=== PATIENT | male | born 1985 | race Caucasian/White ===

== ENCOUNTER 2020-09-07 10:37 | Emergency (ER) | payer SELFPAY ==
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
[2020-09-07 10:47] VITALS: BP 146/97; PULSE 99; RESP 22; TEMP 36.9; O2SAT 99; BMI 22.4
[2020-09-07] MEDS: TET,DIPH,PERTUSS(ACELL),VAC/PF 0.5 ML SYRINGE IM (10:51)
[2020-09-07] MEDS: LIDOCAINE 1% W/EPI 30 ML (10:53)
--- NOTE | 2020-09-07 11:00 | PC.NURSE ---
pt did take the tdap form.
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
[2020-09-07] MEDS: LIDOCAINE 1% (PF) 2 ML (12:02)
[2020-09-07 12:35] VITALS: BP 142/76; PULSE 92; RESP 16; O2SAT 98
== END 2020-09-07 12:35 | disposition home or self-care (01) ==
PROVIDERS: Emergency Provider Emergency Medicine; Family Provider Family Medicine; PCP Family Medicine
DX: S61.011A Laceration without foreign body of right thumb without damage to nail, initial encounter (principal); S01.81XA Laceration without foreign body of other part of head, initial encounter; W26.0XXA Contact with knife, initial encounter; Z23 Encounter for immunization; F11.10 Opioid abuse, uncomplicated
CPT/HCPCS: 12002; 12015; 90471; 99281; 99283; 90715

== ENCOUNTER 2020-09-25 19:24 | Emergency (ER) | payer SELFPAY ==
[2020-09-25 19:27] VITALS: BP 128/79; PULSE 99; RESP 20; TEMP 37; O2SAT 99
--- NOTE | 2020-09-25 19:59 | PC.NURSE ---
Swelling to face noted, patient reports poor dental health and missing teeth with frequent oral infections. Pt also has 7 sutures to right side of face that need removed from prior visit, other sutures from that visit he removed himself.
--- NOTE | 2020-09-25 20:09 | PC.NURSE ---
7 sutures removed from right side of face, wound edges are well approximated and healed, no signs of infection, pt tolerated well.
--- NOTE | 2020-09-25 20:40 | ED.GENADULT ---
HPI - General Adult General Chief complaint: Dental/Oral Stated complaint: Needs Stitches Removed, Tooth Pain and Swelling Time Seen by Provider: 09/25/20 20:31 Source: patient Mode of arrival: Ambulatory Limitations: no limitations History of Present Illness HPI narrative: Patient is a 35-year-old male here for evaluation to have stitches removed from a cut to the right side of his face and also for evaluation of swelling to the left side of his face and concern for dental abscess. He has had dental abscess in the past. He has very poor dentition which he knows about and states that he thought that potentially he injured 1 of the few teeth that he has left while eating a hamburger a couple days ago. He did sustain a cut to the right side of his face several days ago. He removed most of the stitches on his own however there were couple that he was unable to remove. Related Data Previous Rx's Medication Instructions Recorded clindamycin HCl 300 mg PO QID 10 Days #40 cap 09/25/20 Allergies Allergy/AdvReac Type Severity Reaction Status Date / Time No Known Drug Allergies Allergy Verified 09/07/20 10:47 Review of Systems Constitutional Constitutional: Denies fever(s) ENT Ears, Nose, Mouth, and Throat: Denies lip swelling and Denies sore throat Comments: Swelling left side of face Cardiovascular Cardiovascular: Denies dyspnea Respiratory Respiratory: Denies cough and Denies dyspnea Integumentary/Breasts Comments: Stitches in right-sided face Neurologic Neurologic: Denies behavioral changes Psychiatric Psychiatric: Denies behavioral changes Hematologic/Lymphatic On Anticoagulants: No Allergic/Immunologic Allergic/Immunologic: Denies urticaria and Denies lip swelling Patient History Medical History Heroin abuse Methamphetamine abuse Social History Smoking Status: Current every day smoker Smoking Status: Current every day smoker Substance Use Type: heroin and methamphetamine Exam Initial Vital Signs Initial Vital Signs: Vital Signs Temperature 98.6 F 09/25/20 19:27 Pulse Rate 99 H 09/25/20 19:27 Respiratory Rate 20 09/25/20 19:27 Blood Pressure 128/79 09/25/20 19:27 Pulse Oximetry 99 09/25/20 19:27 Const General: intoxicated appearing HENMT Teeth and gingiva: caries, poor dentition and other (Swelling left maxilla) Resp Effort & Inspection: normal respiratory effort Auscultation: clear to auscultation bilaterally Skin Other: Well-healed scar in front of the right ear Neuro General: patient alert and patient awake Course Orders Ordered: Discontinued Medications Clindamycin HCl (Clindamycin 150 Mg Capsule) 300 mg PO NOW ONE Stop: 09/25/20 20:42 Last Admin: 09/25/20 20:45 Dose: 300 mg Documented by: LUIS Vital Signs Vital signs: Vital Signs - 8 hr 09/25/20 19:27 Temperature 98.6 F Pulse Rate 99 H Respiratory Rate 20 Blood Pressure 128/79 Pulse Oximetry 99 Medical Decision Making MDM Narrative Medical decision making narrative: The remaining stitches were removed by nursing staff prior to my evaluation. The scar in front of his right ear is well healing without any signs of infection. Patient does have physical exam that is consistent with a dental infection in his left maxilla region. He does have very poor dentition most likely from methamphetamine abuse. There is no defined abscess that can be drained here in the ER. He was given a dose of antibiotics here in the emergency department which he tolerated orally without any issues. Will give him a prescription for antibiotics. He was given return precautions and follow-up instructions. He expressed understanding and agreement. Discharge Plan Departure Patient Disposition: Home Clinical Impression: Dental abscess, Visit for suture removal Instructions: Tooth Abscess Activity Restrictions/Additional Instructions: Recommend that you start taking the antibiotics as directed. Contact your primary provider for follow-up. You also need to make contact with a dentist as you do need extensive dental work. Return to the emergency department for any new or worsening symptoms Prescriptions: New clindamycin HCl 300 mg capsule 300 mg PO QID 10 Days Qty: 40 RF: 0 Referrals: Jose Maria Mariscal MD [Primary Care Provider] -
[2020-09-25] MEDS: CLINDAMYCIN 150 MG CAPSULE 300 MG PO (20:45)
== END 2020-09-25 20:57 | disposition home or self-care (01) ==
PROVIDERS: Emergency Provider Emergency Medicine; Family Provider Family Medicine; PCP Family Medicine
DX: K04.7 Periapical abscess without sinus (principal); Z48.02 Encounter for removal of sutures
CPT/HCPCS: 99281; 99283